=== PATIENT | female | born 1985 | race Caucasian/White ===

== ENCOUNTER → 2017-02-06 | Outpatient (CLI) | payer BC ==
[~2017-02-06] MED LIST: AEROCHAMBER1 DEV IH; ALBUTEROL200 PUFFS/ IH; AMOXIL500 MG PO; ATIVAN GENERIC0.5 MG PO; ATIVAN0.5 MG PO; BENTYL10 M1 PO; CIPRO 250MG TA250 MG PO; DARVOCET-N6 EACH/PAK PO; FIORICET 325 MG1 TAB PO; FIORICET1 CAP PO; FLAGYL500 MG PO; FLEXERIL10 MG PO; FLINTSTONES COM1 CTB PO; KEFLEX 500MG.500 MG PO; LEVOTHYROXINE0.1 MG PO; METHOCARBAMOL750 M1 PO; NAPROSYN 500MG500 MG PO; NAPROXEN SODIU500 MG PO; ONDANSETRON4 M1 PO; PERCOCET 5/3251 EACH PO; POTASSIUM CHLO20 ME2 PO; SERTRALINE 50MG50 MG PO; SYNTHROID 0.1M0.1 MG PO; SYNTHROID0.2 MG PO; TYLENOL W/CODEI1 TA2 PO; ULTRAM 50 MG TA50 MG PO; ULTRAM50 MG PO; ZITHROMAX Z-PA250 M1 PO; ZOFRAN24 MG PO
--- NOTE | 2017-02-10 07:00 | RADIOLOGY REPORT PS360 ---
US BREAST-RT COMPLETE W/AXILLA COMPARISON: 09/10/2010 INDICATION: Palpable abnormality in the right breast ORDERING PHYSICIAN: Nani Cárdenas MD PATIENT AGE: 31 years TECHNIQUE: Standard images FINDINGS: There is a 3 mm cyst in the outer aspect of the right breast. Small nodes are present in the axilla. No other significant anomalies evident. No suspicious nodules or malignant appearing mass. IMPRESSION: 3 mm cyst 10:00 region of the right breast similar to the previous exam of 09/10/2010 BI-RADS CATEGORY: 2_Benign RECOMMENDED FOLLOWUP: As clinically warranted. Negative ultrasound does not exclude the possibility of malignancy. Any palpable mass should be managed on clinical basis. (A letter has been sent to the patient regarding results of the study.)
== END ==
LOC: RAD 02-03 15:30
DX: N63.10 Unspecified lump in the right breast, unspecified quadrant (principal)